=== PATIENT | female | born 1955 | race Caucasian/White ===

== ENCOUNTER 2022-02-07 12:22 | Inpatient (IN) | payer OTHER ==
[~2022-02-07] VITALS: Ht 172.7 cm; Wt 59.4 kg
[~2022-02-07 12:22] MED LIST: IBUPROFEN800 MG PO; ORPH100T PO
[2022-02-07] MEDS ORDERED: LEVOTHYROXINE25 MCG PO (12:55)
[2022-02-07] MEDS ORDERED: FORTEO2.4 ML SQ (12:55)
== END 2022-02-11 16:08 | disposition home or self-care (01) | DRG 202 ==
LOC: ER 12:22 → MEDI 18:14 → SEC-K 18:14 → MEDI 20:05
PROVIDERS: ADMIT Internal Medicine; ATTEND Internal Medicine
PROC: BW21ZZZ Computerized Tomography (CT Scan) of Abdomen and Pelvis (ICD-10-PCS; principal; 2022-02-07)
PROC: 3E0F7GC Introduction of Other Therapeutic Substance into Respiratory Tract, Via Natural or Artificial Opening (ICD-10-PCS; 2022-02-08)
DX: J45.41 Moderate persistent asthma with (acute) exacerbation (principal); K57.92 Diverticulitis of intestine, part unspecified, without perforation or abscess without bleeding; E03.8 Other specified hypothyroidism